=== PATIENT | male | born 1965 | race Caucasian/White ===

== ENCOUNTER → 2019-07-27 | Outpatient (CLI) | payer SELFPAY | LOC: LAB 13:03 → LAB SHORT 13:03 | DX: N20.1 Calculus of ureter (principal); R10.9 Unspecified abdominal pain | CPT/HCPCS: 87086 ==

== ENCOUNTER 2020-05-16 08:32 | Emergency (ER) | payer OTHER ==
[~2020-05-16] VITALS: Ht 172.7 cm; Wt 101.6 kg
[2020-05-16] MEDS ORDERED: Percocet 5-3251 EACH PO (10:54)
[2020-05-16] MEDS ORDERED: LOVASTATIN20 MG (11:11)
[2020-05-16] MEDS ORDERED: GLIP2.5ER (11:11)
== END 2020-05-16 11:20 | disposition home or self-care (01) ==
LOC: ER 08:32
DX: M54.5 Low back pain (principal); G89.29 Other chronic pain; I10 Essential (primary) hypertension; Z88.8 Allergy status to other drugs, medicaments and biological substances
CPT/HCPCS: 36415; 96361; 96374; 96375; 99283-25; J1170; J1200; J1885; J2765; J7030